=== PATIENT | male | born 1960 | race African-American/Black ===

== ENCOUNTER 2017-01-07 16:54 | Emergency (ER) | payer SELFPAY ==
[~2017-01-07] VITALS: Ht 182.9 cm; Wt 91.0 kg
[2017-01-07] MEDS ORDERED: SODIUM CHLORIDE 0.9% 1,000 ML IV ONE (17:06)
[2017-01-07 18:58] LABS: BASOPHILS % 0.3 % (0.0-2.0); EOSINOPHILS % 0.2 % (0.0-5.0); HEMATOCRIT. 44.4 % (42.0-52.0); HEMOGLOBIN. 15.5 g/dL (14.0-18.0); LYMPHOCYTES % 9.2 % (20.0-50.0); MEAN CORPUSCULAR HEMOGLOBIN 31.8 pg (28.0-32.0); MEAN CORPUSCULAR VOLUME 91.1 fL (80.0-94.0); MEAN PLATELET VOLUME 7.9 fl (7.4-10.4); MONOCYTES % 6.5 % (2.0-8.0); NEUTROPHILS % 83.8 % (40.0-76.0); PLATELET 219 x1000/uL (130-400); PROTHROMBIN TIME 10.3 sec (9.4-11.6); RED BLOOD CELL COUNT 4.87 mill/uL (4.7-6.1); RED CELL DISTRIBUTION WIDTH 13.9 % (11.6-14.6)
[2017-01-07 19:03] LABS: CARBON DIOXIDE 28 mEq/L (21-32); CHLORIDE 107 mEq/L (98-107); ETHANOL BLOOD < 10 mg/dL
[2017-01-07 19:04] LABS: AMMONIA 24 uMol/L (<32)
[2017-01-07 19:30] VITALS: BP 139/79
== END 2017-01-07 20:05 | disposition home or self-care (01) ==
LOC: ER 16:54
DX: R41.82 Altered mental status, unspecified (principal); R00.0 Tachycardia, unspecified; F17.290 Nicotine dependence, other tobacco product, uncomplicated
CPT/HCPCS: 36415; 70450; 71010; 72125; 80053; 80307; 80329; 82140; 85025; 85610; 93005; 99285; G0482; Z7610; J7030